=== PATIENT | male | born 1980 | race Two or more races ===

== ENCOUNTER 2019-02-01 22:14 | Emergency (ER) | END 2019-02-01 23:08 | disposition home or self-care (01) | LOC: FER 22:14 ==

== ENCOUNTER 2019-06-06 18:50 | Inpatient (IN) | payer OTHER ==
[2019-06-06 19:48] LABS: ALBUMIN 4.2 g/dl (3.4-5.0); BASO % 1.4 % (0-2.0); BILIRUBIN,TOTAL 1.2 mg/dl (0.2-1); CALCIUM 9.4 mg/dl (8.5-10); CREATININE 0.9 mg/dl (0.55-1.3); HEMATOCRIT 47.2 % (35.4-49); HEMOGLOBIN 15.9 GM/dl (11.7-16.9); LYMPH % 17.9 % (8-40); MCHC 33.7 g/dl (32.0-35.9); MEAN CELL VOLUME 85.9 fl (80-96); MONO % 8.7 % (3.8-10.2); PLATELET COUNT 252 K/MM3 (134-434); POTASSIUM 3.8 mmol/L (3.5-5.1); RBC 5.49 M/mm3 (4.00-5.60); RDW 11.9 % (11.9-15.9); WHITE BLOOD COUNT 14.3 K/mm3 (4.0-10.8)
[2019-06-06 20:27] LABS: AMORP URATES 4+ /hpf (NONE SEEN); EPITHELIAL CELLS FEW /hpf
[2019-06-06] MEDS ORDERED: PIPERACILLIN/TAZOBACTAM 4.5 GM VIAL IVPB ONE (21:23)
[2019-06-06] MEDS ORDERED: SODIUM CHLORIDE 0.9% 1000 ML INFUS.BAG IV ONE (21:26)
[2019-06-06] MEDS ORDERED: ONDANSETRON 4 MG/2 ML VIAL IVPUSH ONE (21:26)
[2019-06-06] MEDS ORDERED: ONDANSETRON 4 MG/2 ML VIAL ONE (21:26)
--- NOTE | 2019-06-06 22:05 | PDOC ---
Documentation entered by Smiley Stewart SCRIBE, acting as scribe for Luanne Zarco MD. Luanne Zarco MD: This documentation has been prepared by the Terry monroe Adrianna, SCRIBE, under my direction and personally reviewed by me in its entirety. I confirm that the documentation accurately reflects all work, treatment, procedures, and medical decision making performed by me. History of Present Illness - General Chief Complaint: Pain Stated Complaint: ABD PAIN - History of Present Illness Initial Comments: The patient is a 39 year old male, with a significant PMH of HTN ([place] from [place] who presents to the ED for evaluation of abdominal pain for 2 days. Patient notes he developed sudden onset abdominal pain yesterday, which was originally a 10/10 in nature but is now a 7/10. Patient notes the pain is intermittent, felt diffusely across the lower abdomen , radiates to his back, and is unaffected by eating. He states today he developed a subjective fever, but was within normal limits when measured. Patient denies any history of similar symptoms or abdominal surgeries. Denies nausea, vomit, diarrhea, constipation, dysuria. Allergies: NKA, NKDA Surgical History: None reported Social History: Denies EtOH, tobacco, or illicit drug use PCP: Dr. Burnett Past History - Past Medical History Allergies/Adverse Reactions: Allergies Allergy/AdvReac Type Severity Reaction Status Date / Time No Known Allergies Allergy Verified 06/06/19 18:52 Home Medications: Ambulatory Orders NK [No Known Home Medication] 06/06/19 COPD: No Other medical history: denies - Suicide/Smoking/Psychosocial Hx Smoking History: Never smoked Have you smoked in the past 12 months: No Information on smoking cessation initiated: No Hx Alcohol Use: No Drug/Substance Use Hx: No Review of Systems - Review of Systems Comments:: GENERAL/CONSTITUTIONAL: +Subjective fever (normal when measured). No chills. No weakness. HEAD, EYES, EARS, NOSE AND THROAT: No change in vision. No ear pain or discharge. No sore throat. CARDIOVASCULAR: No chest pain or shortness of breath. RESPIRATORY: No cough, wheezing, or hemoptysis. GASTROINTESTINAL: +Diffuse lower abdominal pain. No nausea, vomiting, diarrhea or constipation. GENITOURINARY: No dysuria, frequency, or change in urination. MUSCULOSKELETAL: +Low back pain (radiating from abdomen). No joint or muscle swelling or pain. No neck pain. SKIN: No rash NEUROLOGIC: No headache, vertigo, loss of consciousness, or change in strength/ sensation. ENDOCRINE: No increased thirst. No abnormal weight change. HEMATOLOGIC/LYMPHATIC: No anemia, easy bleeding, or history of blood clots. ALLERGIC/IMMUNOLOGIC: No hives or skin allergy. *Physical Exam - Vital Signs Last Vital Signs Temp Pulse Resp BP Pulse Ox 98.1 F 90 18 132/82 98 06/06/19 18:50 06/06/19 18:50 06/06/19 18:50 06/06/19 18:50 06/06/19 18:50 - Physical Exam Comments: GENERAL: Awake, alert, and fully oriented, in no acute distress LUNGS: Breath sounds equal, clear to auscultation bilaterally. No wheezes, and no crackles HEART: Regular rate and rhythm, normal S1 and S2, no murmurs, rubs or gallops ABDOMEN: +RUQ ttp. +RLQ ttp. +LLQ ttp. Soft, normoactive bowel sounds. No guarding, no rebound. No masses EXTREMITIES: Normal range of motion, no edema. No erythema or tenderness. DP/PT pulses 2+ and symmetric. Warm and well perfused. NEUROLOGICAL: Moves all extremities. Normal speech, normal gait ED Treatment Course - LABORATORY CBC & Chemistry Diagram: 06/06/19 19:24 06/06/19 19:24 - RADIOLOGY Radiograph Interpretation: EXAM#: TYPE/EXAM: RESULT: [id number] CT/ABDOMEN PELVIS CT WITH CONTR HISTORY PROVIDED: Rule out diverticulitis. IMPRESSION: Findings consistent with acute diverticulitis of the proximal sigmoid colon without abscess formation. Clinical correlation and follow-up recommended. Reported By: Kadeem Mcmullen MD 06/06/19 21:48 Medical Decision Making - Medical Decision Making 06/06/19 22:53 pt with diveritculitis. noted air in mesentary. vomiting once in ed. will admit for iv antiobiotics. given zosyn here. no fever. normal WBC count. *DC/Admit/Observation/Transfer Diagnosis at time of Disposition: Diverticulitis - Discharge Dispostion Condition at time of disposition: Stable Decision to Admit order: Yes - Referrals Referrals: Delilah Burnett MD [Primary Care Provider] - - Patient Instructions - Post Discharge Activity
[2019-06-06] MEDS ORDERED: PIPERACILLIN/TAZOB 3.375 GM 3.375 GM in DEXTROSE 5%-WATER - 50 ML IVPB ONE (22:13)
[2019-06-06] MEDS ORDERED: PIPERACILLIN/TAZOBACTAM 3.375 GM VIAL IVPB ONE (22:24)
[2019-06-06] MEDS ORDERED: LACTATED RINGERS SOLUTION 1,000 ML/1,000 ML INFUS.BAG IV SCH (23:45)
--- NOTE | 2019-06-07 00:48 | HP ---
CHIEF COMPLAINT: Abdominal pain PCP: Dr. Burnett HISTORY OF PRESENT ILLNESS: 39 year-old male with a PMH significant for HTN who presents to the ED for evaluation of abdominal pain for 2 days. Patient notes he developed sudden onset abdominal pain yesterday, which was originally a 10/10 in nature but is now a 7/10. Patient notes the pain is intermittent, felt diffusely across the lower abdomen, radiates to his back, and is unaffected by eating. He states today he developed a subjective fever, but was within normal limits when measured. Patient denies any history of similar symptoms or abdominal surgeries. Denies nausea, vomiting, diarrhea, constipation, dysuria. ER course was notable for: (1) WBC 14k, afebrile (2) CT: diverticulitis, air in mesentery (3) IV fluids; Zosyn x 1 (4) surgery Dr. Grayson consulted Recent Travel: No PAST MEDICAL HISTORY: Hypertension PAST SURGICAL HISTORY: None reported Social History: Smoking: no Alcohol: no Drugs: no Family History: Allergies No Known Allergies Allergy (Verified 06/06/19 18:52) HOME MEDICATIONS: Amlodipine Besylate 5 mg PO DAILY 06/07/19 Telmisartan [Micardis] 80 mg PO DAILY 06/07/19 REVIEW OF SYSTEMS CONSTITUTIONAL: Absent: fever, chills, diaphoresis, generalized weakness, malaise, loss of appetite, weight change HEENT: Absent: rhinorrhea, nasal congestion, throat pain, throat swelling, difficulty swallowing, mouth swelling, ear pain, eye pain, visual changes CARDIOVASCULAR: Absent: chest pain, syncope, palpitations, irregular heart rate, lightheadedness , peripheral edema RESPIRATORY: Absent: cough, shortness of breath, dyspnea with exertion, orthopnea, wheezing, stridor, hemoptysis GASTROINTESTINAL: +abdominal pain Absent: abdominal pain, abdominal distension, nausea, vomiting, diarrhea, constipation, melena, hematochezia GENITOURINARY: Absent: dysuria, frequency, urgency, hesitancy, hematuria, flank pain, genital pain MUSCULOSKELETAL: Absent: myalgia, arthralgia, joint swelling, back pain, neck pain SKIN: Absent: rash, itching, pallor HEMATOLOGIC/IMMUNOLOGIC: Absent: easy bleeding, easy bruising, lymphadenopathy, frequent infections ENDOCRINE: Absent: unexplained weight gain, unexplained weight loss, heat intolerance, cold intolerance NEUROLOGIC: Absent: headache, focal weakness or paresthesias, dizziness, unsteady gait, seizure, mental status changes, bladder or bowel incontinence PSYCHIATRIC: Absent: anxiety, depression, suicidal or homicidal ideation, hallucinations. PHYSICAL EXAMINATION Vital Signs - 24 hr 06/06/19 18:50 Temperature 98.1 F Pulse Rate 90 Respiratory 18 Rate Blood Pressure 132/82 O2 Sat by Pulse 98 Oximetry (%) GENERAL: Awake, alert, and fully oriented, in no acute distress. HEAD: Normal with no signs of trauma. EYES: Pupils equal, round and reactive to light, extraocular movements intact, sclera anicteric, conjunctiva clear. No lid lag. LUNGS: Breath sounds equal, clear to auscultation bilaterally. No wheezes, and no crackles. No accessory muscle use. HEART: Regular rate and rhythm, normal S1 and S2 without murmur, rub or gallop. ABDOMEN: Mild LLQ tenderness, normoactive bowel sounds, no guarding, no rebound tenderness MUSCULOSKELETAL: Normal range of motion at all joints. No bony deformities or tenderness. No CVA tenderness. UPPER EXTREMITIES: 2+ pulses, warm, well-perfused. No cyanosis. No clubbing. No peripheral edema. LOWER EXTREMITIES: 2+ pulses, warm, well-perfused. No calf tenderness. No peripheral edema. NEUROLOGICAL: Cranial nerves II-XII intact. Normal speech. Laboratory Results - last 24 hr 06/06/19 06/06/19 06/06/19 19:20 19:24 19:24 WBC 14.3 H RBC 5.49 Hgb 15.9 Hct 47.2 MCV 85.9 MCH 29.0 MCHC 33.7 RDW 11.9 Plt Count 252 MPV 11.0 Absolute Neuts (auto) 9.9 Neutrophils % 69.0 Lymphocytes % 17.9 Monocytes % 8.7 Eosinophils % 3.0 Basophils % 1.4 Sodium 141 Potassium 3.8 Chloride 107 Carbon Dioxide 25 Anion Gap 9 BUN 12.0 Creatinine 0.9 Est GFR (CKD-EPI)AfAm 122.52 Est GFR (CKD-EPI)NonAf 105.71 Random Glucose 126 H Calcium 9.4 Total Bilirubin 1.2 H AST 22 ALT 30 Alkaline Phosphatase 72 Total Protein 8.0 Albumin 4.2 Lipase Urine Color Yellow Urine Appearance Slightly Urine pH 5.5 Urine Protein 2+ H Urine Glucose (UA) Negative Urine Ketones Negative Urine Blood 1+ H Urine Nitrite Negative Urine Bilirubin 1+ H Urine Urobilinogen 0.2 Ur Leukocyte Esterase Negative Urine RBC 2-5 Urine WBC 0-2 Ur Transition Epith Cell Few Amorphous Urates 4+ Urine Bacteria Few 06/06/19 19:24 WBC RBC Hgb Hct MCV MCH MCHC RDW Plt Count MPV Absolute Neuts (auto) Neutrophils % Lymphocytes % Monocytes % Eosinophils % Basophils % Sodium Potassium Chloride Carbon Dioxide Anion Gap BUN Creatinine Est GFR (CKD-EPI)AfAm Est GFR (CKD-EPI)NonAf Random Glucose Calcium Total Bilirubin AST ALT Alkaline Phosphatase Total Protein Albumin Lipase 103 Urine Color Urine Appearance Urine pH Urine Protein Urine Glucose (UA) Urine Ketones Urine Blood Urine Nitrite Urine Bilirubin Urine Urobilinogen Ur Leukocyte Esterase Urine RBC Urine WBC Ur Transition Epith Cell Amorphous Urates Urine Bacteria ASSESSMENT/PLAN 39 year-old male with a PMH significant for HTN, admitted for diverticulitis. Acute Diverticulitis --06/06 CTAP: acute diverticulitis of the proximal sigmoid colon, no abscess formation, (+) free air in mesentery --elevated WBC, no fever --start Zosyn --ID consult --surgery consult Dr. Grayson Hypertension --BP stable --continue amlodipine, ACEI FEN Fluids: LR@125mL/hr Electrolytes: replete as indicated Nutrition: NPO DVT prophylaxis: SCDs, oob, ambulation Dispo: continues to require inpatient care. Full code. Visit type - Emergency Visit Emergency Visit: Yes ED Registration Date: 06/06/19 Care time: The patient presented to the Emergency Department on the above date and was hospitalized for further evaluation of their emergent condition. - New Patient This patient is new to me today: Yes Date on this admission: 06/09/19 - Critical Care Critical Care patient: No
[2019-06-07] MEDS ORDERED: ACETAMINOPHEN 1000 MG/100 ML VIAL (NON FORMULARY) IVPB PRN (01:20)
[2019-06-07 01:52] LABS: INR 1.05 (0.83-1.09); PROTHROMBIN TIME (PATIENT) 12.4 SEC (9.7-13.0)
[2019-06-07 02:47] VITALS: BMI 36.3
[2019-06-07 07:26] LABS: BASO % 0.6 % (0-2.0); EOS % 4.9 % (0-4.5); HEMATOCRIT 40.7 % (35.4-49); HEMOGLOBIN 13.8 GM/dl (11.7-16.9); LYMPH % 24.6 % (8-40); MCH 28.8 pg (25.7-33.7); MCHC 33.9 g/dl (32.0-35.9); MEAN CELL VOLUME 84.8 fl (80-96); MEAN PLT VOLUME 10.3 fl (7.5-11.1); MONO % 9.1 % (3.8-10.2); NEUT % 60.8 % (42.8-82.8); PLATELET COUNT 215 K/MM3 (134-434); RDW 12.1 % (11.9-15.9); WHITE BLOOD COUNT 9.3 K/mm3 (4.0-10.8)
[2019-06-07 07:40] LABS: CALCIUM 8.8 mg/dl (8.5-10); MAGNESIUM 2.1 mg/dL (1.8-2.4)
[2019-06-07] MEDS: amLODIPine BESYLATE 5 MG TABLET (FP) PO SCH (10:10)
[2019-06-07] MEDS: VALSARTAN 160 MG TABLET (UD) PO SCH (10:10)
--- NOTE | 2019-06-07 10:17 | CONSULT ---
Consult Consult Specialty:: General Surgery Referred by:: Wilfred Zarco Reason for Consultation:: diverticulitis - History of Present Illness Chief Complaint: lower abdominal pain History of Present Illness: 39yo [place] M with HTN began having RLQ pain Wednesday, which radiated across lower abdomen, and has since moved more to LLQ, associated with subjective fever and chills early Wednesday am into yesterday, though he did not have N/V. He denied diarrhea or constipation, as well as urinary complaints. Never had this before. He was able to eat despite the pain. He came to ER yesterday, because the pain was not getting any better. In ER, he was noted to have wbc 14, and CT showed sigmoid diverticulitis with localized microperf/locule of air in mesentery, no abscess or free fluid or gross free air. He has never had a colonoscopy, because he is only 39. He was given IVF, Zosyn and pain med in the ER, and surgery was asked to assess. He is seen and examined in bed, admitted to medicine. He reports feeling somewhat better. No pain currently but still with tenderness LLQ. He has not moved his bowels yet but is voiding ok. His antihypertensive from [place] is combination amlodipine 5mg and telmisartan 80mg, which he takes every OTHER day. He does monitor his BP at home, which ranges from normal up to 130s-140s systolic in general. - History Source History Provided By: Patient Limitations to Obtaining History: No Limitations - Past Medical History Cardio/Vascular: Yes: HTN - Past Surgical History Past Surgical History: Yes: None - Alcohol/Substance Use Hx Alcohol Use: No History of Substance Use: reports: None - Smoking History Smoking history: Never smoked Have you smoked in the past 12 months: No - Social History ADL: Independent Place of : Other ([place]) Home Medications - Allergies Allergies/Adverse Reactions: Allergies Allergy/AdvReac Type Severity Reaction Status Date / Time No Known Allergies Allergy Verified 06/06/19 18:52 - Home Medications Home Medications: Ambulatory Orders Amlodipine Besylate 5 mg PO DAILY 06/07/19 Telmisartan [Micardis] 80 mg PO DAILY 06/07/19 Home Medications (free text): pt takes combo med every OTHER day, not daily Family Disease History - Family Disease History Family Disease History: Other: Father (HTN, at 40), Mother (alive, h/o CVA) Review of Systems - Review of Systems Constitutional: reports: Chills, Fever Eyes: denies: Blurred Vision, Recent Change in Vision HENT: denies: Difficult Swallowing, Throat Pain Neck: denies: Swollen Glands, Tenderness Cardiovascular: denies: Chest Pain, Palpitations Respiratory: denies: Cough, SOB Gastrointestinal: reports: Abdominal Pain. denies: Constipation, Diarrhea, Nausea, Vomiting Genitourinary: denies: Burning, Dysuria Musculoskeletal: reports: Back Pain (few months ago, not chronic). denies: Joint Pain, Muscle Pain Integumentary: denies: Change in Color, Rash Neurological: denies: Dizziness, Headache Psychiatric: denies: Anxiety, Depression Physical Exam Vital Signs: Vital Signs Temperature 98.2 F 06/07/19 09:46 Pulse Rate 80 06/07/19 09:46 Respiratory Rate 17 06/07/19 09:46 Blood Pressure 130/73 06/07/19 09:46 O2 Sat by Pulse Oximetry (%) 99 06/07/19 09:46 Constitutional: Yes: No Distress, Calm, Obese Eyes: Yes: Conjunctiva Clear, EOM Intact HENT: Yes: Atraumatic, Normocephalic Neck: Yes: Supple, Trachea Midline Cardiovascular: Yes: Regular Rate and Rhythm Respiratory: Yes: Regular, CTA Bilaterally Gastrointestinal: Yes: Soft, Abdomen, Obese, Hyperactive Bowel Sounds, Tenderness (LLQ, no adam/guard). No: Tenderness, Epigastrium ...Rectal Exam: Yes: Deferred Renal/: No: CVA Tenderness - Left, CVA Tenderness - Right Musculoskeletal: No: Joint Stiffness, Joint Swelling Extremities: No: Cool, Cyanosis Edema: No Peripheral Pulses WNL: Yes Integumentary: No: Jaundice, Rash Neurological: Yes: Alert, Oriented Psychiatric: Yes: Alert, Oriented Labs: CBC, BMP 06/07/19 07:06 06/07/19 07:06 CMP Sodium 140 mmol/L (136-145) 06/07/19 07:06 Potassium 4.0 mmol/L (3.5-5.1) 06/07/19 07:06 Chloride 108 mmol/L (98-107) H 06/07/19 07:06 Carbon Dioxide 26 mmol/L (21-32) 06/07/19 07:06 Anion Gap 6 MMOL/L (8-16) L 06/07/19 07:06 BUN 14.0 mg/dl (7-18) 06/07/19 07:06 Creatinine 1.0 mg/dl (0.55-1.3) 06/07/19 07:06 Est GFR (CKD-EPI)AfAm 107.87 06/07/19 07:06 Est GFR (CKD-EPI)NonAf 93.07 06/07/19 07:06 Random Glucose 98 mg/dl (74-106) 06/07/19 07:06 Calcium 8.8 mg/dl (8.5-10) 06/07/19 07:06 Magnesium 2.1 mg/dL (1.8-2.4) 06/07/19 07:06 Total Bilirubin 1.2 mg/dl (0.2-1) H 06/06/19 19:24 AST 22 U/L (15-37) 06/06/19 19:24 ALT 30 U/L (13-61) 06/06/19 19:24 Alkaline Phosphatase 72 U/L (45-117) 06/06/19 19:24 Total Protein 8.0 g/dl (6.4-8.2) 06/06/19 19:24 Albumin 4.2 g/dl (3.4-5.0) 06/06/19 19:24 Lipase 103 U/L (73-393) 06/06/19 19:24 INR, PTT INR 1.05 (0.83-1.09) 06/07/19 01:03 Urine Test Results Urine Color Yellow 06/06/19 19:20 Urine Appearance Slightly 06/06/19 19:20 Urine pH 5.5 (4.5-8) 06/06/19 19:20 Urine Protein 2+ (NEGATIVE) H 06/06/19 19:20 Urine Glucose (UA) Negative (NEGATIVE) 06/06/19 19:20 Urine Ketones Negative (NEGATIVE) 06/06/19 19:20 Urine Blood 1+ (NEGATIVE) H 06/06/19 19:20 Urine Nitrite Negative (NEGATIVE) 06/06/19 19:20 Urine Bilirubin 1+ (NEGATIVE) H 06/06/19 19:20 Ur Leukocyte Esterase Negative (NEGATIVE) 06/06/19 19:20 Urine RBC 2-5 /hpf (0-4) 06/06/19 19:20 Urine WBC 0-2 (NEGATIVE) 06/06/19 19:20 Urine Bacteria Few /hpf (NEGATIVE) 06/06/19 19:20 wbc down from 14 Imaging - Results Cat Scan: Report Reviewed, Image Reviewed (sigmoid colon with area of inflammation, haziness adjacent to colon, locule of air in mesenteric fat; no organized abscess, no obstruction, no free fluid or gross free air) Problem List - Problems (1) Diverticulitis of large intestine with perforation without abscess or bleeding Assessment/Plan: localized microperf but no abscess agree with Zosyn, ID consult to continue NPO/IVF - except meds with sips ok would wait to resume po/start clears until tenderness as well as pain resolves more trend labs - wbc normal today no fevers GI/DVT prophylaxis pain meds prn - tylenol first line encouraged OOB/ambulation discussed with patient that this episode may resolve well with conservative treatment but if he experienced gross perforation, failure to improve or clinical deterioration, emergent/urgent surgery could be necessary this would likely include need for colostomy, though it could be reversed in future he understands expect he will ultimately complete antibiotic course PO at home, presuming improvement leads to discharge without surgery he will need GI referral on discharge for colonoscopy to be performed 6-8 weeks after resolution of this episode PMD is Dr. Delilah Burnett discussed with Sharlene Mills NP Code(s): K57.20 - DVTRCLI OF LG INT W PERFORATION AND ABSCESS W/O BLEEDING (2) LLQ pain Code(s): R10.32 - LEFT LOWER QUADRANT PAIN (3) Chills without fever Code(s): R68.83 - CHILLS (WITHOUT FEVER) (4) Class 2 obesity due to excess calories with body mass index (BMI) of 36.0 to 36.9 in adult Code(s): E66.09 - OTHER OBESITY DUE TO EXCESS CALORIES; Z68.36 - BODY MASS INDEX (BMI) 36.0-36.9, ADULT Qualifiers: Serious obesity comorbidity presence: without serious comorbidity Qualified Code(s): E66.09 - Other obesity due to excess calories; Z68.36 - Body mass index (BMI) 36.0-36.9, adult
[2019-06-07] MEDS ORDERED: PIPERACILLIN/TAZOB 4.5 GM 4.5 GM in DEXTROSE 5%-WATER 100 ML IVPB SCH (10:45)
[2019-06-07] MEDS ORDERED: PIPERACILLIN/TAZOBACTAM 4.5 GM VIAL IVPB ONE ×2 (10:48→16:56)
[2019-06-07] MEDS ORDERED: DEXTROSE 5%-WATER 100 ML IVPB ONE ×2 (10:48→16:56)
--- NOTE | 2019-06-07 11:14 | EKG ---
Test Reason : Blood Pressure : / mmHG Vent. Rate : 070 BPM Atrial Rate : 070 BPM P-R Int : 172 ms QRS Dur : 092 ms QT Int : 388 ms P-R-T Axes : 012 067 018 degrees QTc Int : 419 ms NORMAL SINUS RHYTHM NORMAL ECG NO PREVIOUS ECGS AVAILABLE Confirmed by JERROD DE LEON, CRISTI ([id number]) on 06/07/2019 11:13:57 AM Referred By: RODERICK VELA Confirmed By:CRISTI ELDER MD
--- NOTE | 2019-06-07 13:24 | CON.ID ---
Consult Consult Specialty:: infectious diseases Referred by:: Peg Reason for Consultation:: diverticulitis with micro perf - History of Present Illness Chief Complaint: abd pain History of Present Illness: 39 year-old male with a PMH significant for HTN who presents to the ED for evaluation of abdominal pain for 2 days. Patient notes he developed sudden onset abdominal pain yesterday, which was originally a 10/10 in nature but is now a 7/10. Patient notes the pain is intermittent, felt diffusely across the lower abdomen, radiates to his back, and is unaffected by eating. He states today he developed a subjective fever, but was within normal limits when measured. Patient denies any history of similar symptoms or abdominal surgeries. Denies nausea, vomiting, diarrhea, constipation, dysuria. currently he feels a little better patient started on zosyn - History Source History Provided By: Patient Limitations to Obtaining History: No Limitations - Past Medical History Cardio/Vascular: Yes: HTN - Past Surgical History Past Surgical History: Yes: None - Alcohol/Substance Use Hx Alcohol Use: No History of Substance Use: reports: None - Smoking History Smoking history: Never smoked Have you smoked in the past 12 months: No - Social History ADL: Independent Home Medications - Allergies Allergies/Adverse Reactions: Allergies Allergy/AdvReac Type Severity Reaction Status Date / Time No Known Allergies Allergy Verified 06/06/19 18:52 - Home Medications Home Medications: Ambulatory Orders Amlodipine Besylate 5 mg PO DAILY 06/07/19 Telmisartan [Micardis] 80 mg PO DAILY 06/07/19 Family Disease History - Family Disease History Family Disease History: Other: Father (HTN, at 40), Mother (alive, h/o CVA) Review of Systems - Review of Systems Constitutional: reports: No Symptoms Eyes: reports: No Symptoms HENT: reports: No Symptoms Neck: reports: No Symptoms Cardiovascular: reports: No Symptoms Respiratory: reports: No Symptoms Gastrointestinal: reports: Abdominal Pain Genitourinary: reports: No Symptoms Musculoskeletal: reports: No Symptoms Integumentary: reports: No Symptoms Neurological: reports: No Symptoms Endocrine: reports: No Symptoms Hematology/Lymphatic: reports: No Symptoms Psychiatric: reports: No Symptoms Physical Exam Vital Signs: Vital Signs Temperature 98.2 F 06/07/19 09:46 Pulse Rate 80 06/07/19 09:46 Respiratory Rate 17 09/18/19 09:46 Blood Pressure 130/73 09/18/19 09:46 O2 Sat by Pulse Oximetry (%) 99 06/07/19 09:46 Constitutional: Yes: Well Nourished, Calm, Mild Distress Eyes: Yes: Conjunctiva Clear Neck: Yes: Supple, Trachea Midline Cardiovascular: Yes: Regular Rate and Rhythm Respiratory: Yes: Regular, CTA Bilaterally Gastrointestinal: Yes: Soft, Hypoactive Bowel Sounds, Tenderness (left lower quadrant) Musculoskeletal: Yes: WNL Extremities: Yes: WNL Neurological: Yes: Alert, Oriented Psychiatric: Yes: Alert, Oriented Labs: CBC, BMP 06/07/19 07:06 06/07/19 07:06 Imaging - Results Cat Scan: Report Reviewed, Image Reviewed Assessment/Plan Problem List - Problems (1) Diverticulitis of large intestine with perforation without abscess or bleeding Code(s): K57.20 - DVTRCLI OF LG INT W PERFORATION AND ABSCESS W/O BLEEDING (2) LLQ pain Code(s): R10.32 - LEFT LOWER QUADRANT PAIN (3) Chills without fever Code(s): R68.83 - CHILLS (WITHOUT FEVER) (4) Class 2 obesity due to excess calories with body mass index (BMI) of 36.0 to 36.9 in adult Code(s): E66.09 - OTHER OBESITY DUE TO EXCESS CALORIES; Z68.36 - BODY MASS INDEX (BMI) 36.0-36.9, ADULT Qualifiers: Serious obesity comorbidity presence: without serious comorbidity Qualified Code(s): E66.09 - Other obesity due to excess calories; Z68.36 - Body mass index (BMI) 36.0-36.9, adult plan we will conitnue zosyn surgery non board close watch npo rest as per surgery
--- NOTE | 2019-06-07 14:50 | PN ---
Physical Exam: SUBJECTIVE: Patient seen and examined at bedside. Feels much better. Denies pain. Has tolerated two meals of clear liquids. OBJECTIVE: Vital Signs Period Temp Pulse Resp BP Sys/Mederos Pulse Ox Last 24 Hr 97.8 F-98.4 F 70-90 -19 114-142/66-92 98-99 GENERAL: The patient is awake, alert, and fully oriented, in no acute distress. LUNGS: Breath sounds equal, clear to auscultation bilaterally, no wheezes, no crackles, no accessory muscle use. HEART: Regular rate and rhythm, S1, S2 without murmur, rub or gallop. ABDOMEN: Soft, nontender, nondistended EXTREMITIES: 2+ pulses, warm, well-perfused, no edema. NEUROLOGICAL: Cranial nerves II through XII grossly intact. Normal speech, gait not observed. Laboratory Results - last 24 hr 06/06/19 06/06/19 06/06/19 19:20 19:24 19:24 WBC 14.3 H RBC 5.49 Hgb 15.9 Hct 47.2 MCV 85.9 MCH 29.0 MCHC 33.7 RDW 11.9 Plt Count 252 MPV 11.0 Absolute Neuts (auto) 9.9 Neutrophils % 69.0 Lymphocytes % 17.9 Monocytes % 8.7 Eosinophils % 3.0 Basophils % 1.4 PT with INR INR PTT (Actin FS) Sodium 141 Potassium 3.8 Chloride 107 Carbon Dioxide 25 Anion Gap 9 BUN 12.0 Creatinine 0.9 Est GFR (CKD-EPI)AfAm 122.52 Est GFR (CKD-EPI)NonAf 105.71 Random Glucose 126 H Calcium 9.4 Magnesium Total Bilirubin 1.2 H AST 22 ALT 30 Alkaline Phosphatase 72 Total Protein 8.0 Albumin 4.2 Lipase Urine Color Yellow Urine Appearance Slightly Urine pH 5.5 Urine Protein 2+ H Urine Glucose (UA) Negative Urine Ketones Negative Urine Blood 1+ H Urine Nitrite Negative Urine Bilirubin 1+ H Urine Urobilinogen 0.2 Ur Leukocyte Esterase Negative Urine RBC 2-5 Urine WBC 0-2 Ur Transition Epith Cell Few Amorphous Urates 4+ Urine Bacteria Few Blood Type Antibody Screen 06/06/19 06/07/19 06/07/19 19:24 01:03 01:03 WBC RBC Hgb Hct MCV MCH MCHC RDW Plt Count MPV Absolute Neuts (auto) Neutrophils % Lymphocytes % Monocytes % Eosinophils % Basophils % PT with INR 12.40 INR 1.05 PTT (Actin FS) 36.0 Sodium Potassium Chloride Carbon Dioxide Anion Gap BUN Creatinine Est GFR (CKD-EPI)AfAm Est GFR (CKD-EPI)NonAf Random Glucose Calcium Magnesium Total Bilirubin AST ALT Alkaline Phosphatase Total Protein Albumin Lipase 103 Urine Color Urine Appearance Urine pH Urine Protein Urine Glucose (UA) Urine Ketones Urine Blood Urine Nitrite Urine Bilirubin Urine Urobilinogen Ur Leukocyte Esterase Urine RBC Urine WBC Ur Transition Epith Cell Amorphous Urates Urine Bacteria Blood Type Antibody Screen 06/07/19 06/07/19 06/07/19 01:03 01:05 07:06 WBC 9.3 RBC 4.80 Hgb 13.8 Hct 40.7 MCV 84.8 MCH 28.8 MCHC 33.9 RDW 12.1 Plt Count 215 MPV 10.3 Absolute Neuts (auto) 5.6 Neutrophils % 60.8 Lymphocytes % 24.6 D Monocytes % 9.1 Eosinophils % 4.9 H Basophils % 0.6 PT with INR INR PTT (Actin FS) Sodium Potassium Chloride Carbon Dioxide Anion Gap BUN Creatinine Est GFR (CKD-EPI)AfAm Est GFR (CKD-EPI)NonAf Random Glucose Calcium Magnesium Total Bilirubin AST ALT Alkaline Phosphatase Total Protein Albumin Lipase Urine Color Urine Appearance Urine pH Urine Protein Urine Glucose (UA) Urine Ketones Urine Blood Urine Nitrite Urine Bilirubin Urine Urobilinogen Ur Leukocyte Esterase Urine RBC Urine WBC Ur Transition Epith Cell Amorphous Urates Urine Bacteria Blood Type B NEGATIVE B NEGATIVE Antibody Screen Negative 06/07/19 07:06 WBC RBC Hgb Hct MCV MCH MCHC RDW Plt Count MPV Absolute Neuts (auto) Neutrophils % Lymphocytes % Monocytes % Eosinophils % Basophils % PT with INR INR PTT (Actin FS) Sodium 140 Potassium 4.0 Chloride 108 H Carbon Dioxide 26 Anion Gap 6 L BUN 14.0 Creatinine 1.0 Est GFR (CKD-EPI)AfAm 107.87 Est GFR (CKD-EPI)NonAf 93.07 Random Glucose 98 Calcium 8.8 Magnesium 2.1 Total Bilirubin AST ALT Alkaline Phosphatase Total Protein Albumin Lipase Urine Color Urine Appearance Urine pH Urine Protein Urine Glucose (UA) Urine Ketones Urine Blood Urine Nitrite Urine Bilirubin Urine Urobilinogen Ur Leukocyte Esterase Urine RBC Urine WBC Ur Transition Epith Cell Amorphous Urates Urine Bacteria Blood Type Antibody Screen Active Medications Generic Name Dose Route Start Last Admin Trade Name Freq PRN Reason Stop Dose Admin Acetaminophen 1,000 mg 06/07/19 01:20 Ofirmev Injection - IVPB Q6H PRN PAIN LEVEL 1-5 Amlodipine Besylate 5 mg 06/07/19 10:00 06/07/19 10:10 Norvasc - PO 5 mg DAILY [facility] Administration Lactated Ringer's 1,000 ml in 1,000 mls @ 125 mls/hr 06/06/19 23:45 06/07/19 00:52 Lactated Ringers Solution IV 125 mls/hr ASDIR [facility] Administration Piperacillin Sod/Tazobactam 100 mls @ 200 mls/hr 06/07/19 18:00 Sod 4.5 gm/ Dextrose IVPB Q8H-IV [facility] Protocol Valsartan 320 mg 06/07/19 10:00 06/07/19 10:10 Diovan - PO 320 mg DAILY [facility] Administration ASSESSMENT/PLAN: 39 year-old male with a PMH significant for HTN, admitted for diverticulitis. Acute Diverticulitis --06/06 CTAP: acute diverticulitis of the proximal sigmoid colon, no abscess formation, (+) free air in mesentery --leukocytosis resolved; no fever --continue Zosyn --ID consult --surgery consult Dr. Grayson Hypertension --BP stable --continue amlodipine, ACEI FEN Fluids: LR@125mL/hr Electrolytes: replete as indicated Nutrition: advance diet DVT prophylaxis: SCDs, oob, ambulation Dispo: continues to require inpatient care. Full code. Visit type - Emergency Visit Emergency Visit: Yes ED Registration Date: 06/06/19 Care time: The patient presented to the Emergency Department on the above date and was hospitalized for further evaluation of their emergent condition. - New Patient This patient is new to me today: No - Critical Care Critical Care patient: No
[2019-06-07] MEDS: PIPERACILLIN/TAZOB 4.5 GM 4.5 GM in DEXTROSE 5%-WATER 100 ML IVPB SCH (17:20)
[2019-06-08] MEDS ORDERED: PIPERACILLIN/TAZOBACTAM 4.5 GM VIAL IVPB ONE ×3 (01:13→16:48)
[2019-06-08] MEDS ORDERED: DEXTROSE 5%-WATER 100 ML IVPB ONE ×3 (01:13→16:48)
[2019-06-08] MEDS: PIPERACILLIN/TAZOB 4.5 GM 4.5 GM in DEXTROSE 5%-WATER 100 ML IVPB SCH ×3 (01:25→17:21)
[2019-06-08 08:18] LABS: BASO % 0.7 % (0-2.0); EOS % 6.2 % (0-4.5); HEMATOCRIT 43.3 % (35.4-49); HEMOGLOBIN 14.5 GM/dl (11.7-16.9); LYMPH % 20.1 % (8-40); MCH 28.4 pg (25.7-33.7); MCHC 33.5 g/dl (32.0-35.9); MEAN CELL VOLUME 84.7 fl (80-96); MEAN PLT VOLUME 10.7 fl (7.5-11.1); MONO % 10.3 % (3.8-10.2); NEUT % 62.7 % (42.8-82.8); PLATELET COUNT 220 K/MM3 (134-434); RBC 5.11 M/mm3 (4.00-5.60); RDW 11.9 % (11.9-15.9); WHITE BLOOD COUNT 7.6 K/mm3 (4.0-10.8)
[2019-06-08 08:23] LABS: ALBUMIN 3.6 g/dl (3.4-5.0); BILIRUBIN,TOTAL 1.6 mg/dl (0.2-1); CALCIUM 9.4 mg/dl (8.5-10); CREATININE 1.2 mg/dl (0.55-1.3); MAGNESIUM 2.2 mg/dL (1.8-2.4); POTASSIUM 4.5 mmol/L (3.5-5.1); TOT PROT 6.8 g/dl (6.4-8.2)
[2019-06-08] MEDS: VALSARTAN 160 MG TABLET (UD) PO SCH (09:23)
[2019-06-08] MEDS: amLODIPine BESYLATE 5 MG TABLET (FP) PO SCH (09:25)
--- NOTE | 2019-06-08 14:42 | PN ---
Progress Note, Physician Chief Complaint: LLQ pain History of Present Illness: 39yo [place] M with uncomplicated sigmoid diverticulitis. He reports no pain and has not been using any tylenol. Ambulating, sitting OOB at times. Moved his bowels (soft, formed) this morning. Overall feeling better. Seen and examined in bed, cousin at bedside. No fevers, wbc normal, bili up slightly. Tolerated clears for dinner and breakfast; has full liquids now for lunch. On Zosyn per ID. - Current Medication List Current Medications: Active Medications Acetaminophen (Ofirmev Injection -) 1,000 mg IVPB Q6H PRN PRN Reason: PAIN LEVEL 1-5 Amlodipine Besylate (Norvasc -) 5 mg PO DAILY [facility] Last Admin: 06/08/19 09:25 Dose: 5 mg Piperacillin Sod/Tazobactam (Sod 4.5 gm/ Dextrose) 100 mls @ 200 mls/hr IVPB Q8H-IV [facility]; Protocol Last Admin: 06/08/19 09:26 Dose: 200 mls/hr Valsartan (Diovan -) 320 mg PO DAILY [facility] Last Admin: 06/08/19 09:23 Dose: 320 mg - Objective Vital Signs: Vital Signs Temperature 98.2 F 06/08/19 14:00 Pulse Rate 77 06/08/19 14:00 Respiratory Rate 18 06/08/19 14:00 Blood Pressure 113/81 06/08/19 14:00 O2 Sat by Pulse Oximetry (%) 100 06/08/19 14:00 Constitutional: Yes: No Distress, Calm, Obese Eyes: Yes: Conjunctiva Clear, EOM Intact. No: Sclera Icterus HENT: Yes: Atraumatic, Normocephalic Gastrointestinal: Yes: Soft, Abdomen, Obese, Tenderness (minimal LLQ to deep palpation, less than yesterday). No: Distention Musculoskeletal: No: Joint Stiffness, Joint Swelling Extremities: No: Cool, Cyanosis Integumentary: No: Jaundice, Rash Neurological: Yes: Alert, Oriented Labs: CBC, BMP 06/08/19 07:10 06/08/19 07:10 CMP Sodium 142 mmol/L (136-145) 06/08/19 07:10 Potassium 4.5 mmol/L (3.5-5.1) 06/08/19 07:10 Chloride 104 mmol/L (98-107) 06/08/19 07:10 Carbon Dioxide 31 mmol/L (21-32) 06/08/19 07:10 Anion Gap 7 MMOL/L (8-16) L 06/08/19 07:10 BUN 14.0 mg/dl (7-18) 06/08/19 07:10 Creatinine 1.2 mg/dl (0.55-1.3) 06/08/19 07:10 Est GFR (CKD-EPI)AfAm 86.53 06/08/19 07:10 Est GFR (CKD-EPI)NonAf 74.66 06/08/19 07:10 Random Glucose 86 mg/dl (74-106) 06/08/19 07:10 Calcium 9.4 mg/dl (8.5-10) 06/08/19 07:10 Magnesium 2.2 mg/dL (1.8-2.4) 06/08/19 07:10 Total Bilirubin 1.6 mg/dl (0.2-1) H 06/08/19 07:10 AST 22 U/L (15-37) 06/08/19 07:10 ALT 32 U/L (13-61) 06/08/19 07:10 Alkaline Phosphatase 50 U/L (45-117) D 06/08/19 07:10 Total Protein 6.8 g/dl (6.4-8.2) 06/08/19 07:10 Albumin 3.6 g/dl (3.4-5.0) 06/08/19 07:10 Lipase 103 U/L (73-393) 06/06/19 19:24 Hb and Cr up just a little Problem List - Problems (1) Diverticulitis of large intestine with perforation without abscess or bleeding Assessment/Plan: uncomplicated diverticulitis continue Zosyn - will be 2 days of IV abx tonight/early am full liquids ok for now if tolerates fulls for lunch AND dinner, ok to advance to regular in AM for breakfast would continue IV fluids through today and/or encourage noncaffeinated PO liquid intake trend labs GI/DVT prophylaxis pain meds prn - tylenol first line (not using) encouraged OOB/ambulation presuming he tolerates regular diet for breakfast and lunch tomorrow, could probably go home in afternoon on ORAL antibiotic course to finish, per ID (anticipate likely 10d of ?Augmentin 875mg bid? or similar) he will need GI referral on discharge for colonoscopy to be performed 6-8 weeks after RESOLUTION of this episode PMD is Dr. Delilah Burnett discussed with nursing will discuss with Sharlene Mills NP Code(s): K57.20 - DVTRCLI OF LG INT W PERFORATION AND ABSCESS W/O BLEEDING (2) LLQ pain Assessment/Plan: resolved Code(s): R10.32 - LEFT LOWER QUADRANT PAIN (3) Chills without fever Assessment/Plan: resolved Code(s): R68.83 - CHILLS (WITHOUT FEVER) (4) Class 2 obesity due to excess calories with body mass index (BMI) of 36.0 to 36.9 in adult Code(s): E66.09 - OTHER OBESITY DUE TO EXCESS CALORIES; Z68.36 - BODY MASS INDEX (BMI) 36.0-36.9, ADULT Qualifiers: Serious obesity comorbidity presence: without serious comorbidity Qualified Code(s): E66.09 - Other obesity due to excess calories; Z68.36 - Body mass index (BMI) 36.0-36.9, adult
[2019-06-08] MEDS ORDERED: ACETAMINOPHEN 325 MG TABLET (FP) PO PRN (14:51)
[2019-06-08] MEDS ORDERED: SODIUM CHLORIDE 0.45% 1,000 ML IV SCH (15:00)
[2019-06-08] MEDS: LACTOBACILLUS ACIDOPHILUS 1 TABLET PO SCH (15:20)
[2019-06-09] MEDS ORDERED: DEXTROSE 5%-WATER 100 ML IVPB ONE ×2 (00:26→09:31)
[2019-06-09] MEDS ORDERED: PIPERACILLIN/TAZOBACTAM 4.5 GM VIAL IVPB ONE ×2 (00:26→09:31)
[2019-06-09] MEDS: PIPERACILLIN/TAZOB 4.5 GM 4.5 GM in DEXTROSE 5%-WATER 100 ML IVPB SCH ×2 (01:51→10:00)
[2019-06-09] MEDS: LACTOBACILLUS ACIDOPHILUS 1 TABLET PO SCH (09:59)
[2019-06-09] MEDS: amLODIPine BESYLATE 5 MG TABLET (FP) PO SCH (10:00)
[2019-06-09] MEDS: VALSARTAN 160 MG TABLET (UD) PO SCH (10:00)
--- NOTE | 2019-06-09 14:23 | DS ---
Physical Exam: SUBJECTIVE: Patient seen and examined OBJECTIVE: Vital Signs Period Temp Pulse Resp BP Sys/Mederos Pulse Ox Last 24 Hr 97.5 F-98.3 F 73-79 16-18 110-119/69-73 96-98 PHYSICAL EXAM GENERAL: The patient is awake, alert, and fully oriented, in no acute distress. HEAD: Normal with no signs of trauma. EYES: PERRL, extraocular movements intact, sclera anicteric, conjunctiva clear. ENT: Ears normal, nares patent, oropharynx clear without exudates, moist mucous membranes. NECK: Trachea midline, full range of motion, supple. LUNGS: Breath sounds equal, clear to auscultation bilaterally, no wheezes, no crackles, no accessory muscle use. HEART: Regular rate and rhythm, S1, S2 without murmur, rub or gallop. ABDOMEN: Soft, nontender, nondistended, normoactive bowel sounds, no guarding, no rebound, no hepatosplenomegaly, no masses. EXTREMITIES: 2+ pulses, warm, well-perfused, no edema. NEUROLOGICAL: Cranial nerves II through XII grossly intact. Normal speech, gait not observed. PSYCH: Normal mood, normal affect. SKIN: Warm, dry, normal turgor, no rashes or lesions noted. LABS HOSPITAL COURSE: Date of Admission:06/06/19 Date of Discharge: 06/09/19 Pre hospital course 39 year-old male with a PMH significant for HTN who presents to the ED for evaluation of abdominal pain for 2 days. Patient developed sudden onset abdominal pain yesterday, which was originally a 10/10 in nature but is now a 7/ 10.The pain is intermittent, felt diffusely across the lower abdomen, radiates to the back, and is unaffected by eating. He states today he developed a subjective fever, but was within normal limits when measured. Patient denies any history of similar symptoms or abdominal surgeries. Denies nausea, vomiting , diarrhea, constipation, dysuria. ER course (1) WBC 14k, afebrile (2) CT: diverticulitis, air in mesentery (3) IV fluids; Zosyn x 1 Subsequent hospital course 39 year-old male with a PMH significant for HTN, admitted for diverticulitis. Acute Diverticulitis --06/06 CTAP: acute diverticulitis of the proximal sigmoid colon, no abscess formation, (+) free air in mesentery --leukocytosis resolved; no fever --treated with Zosyn, discharged on augmentin --was initially kept NPO with IV fluids; diet was slowly advanced; +BM + flatus, pain resolved Hypertension --BP remained stable --continued amlodipine, ACEI Minutes to complete discharge: 35 Discharge Summary Problems reviewed: Yes Reason For Visit: DIVERTICULITIS Current Active Problems Chills without fever (Acute) Class 2 obesity due to excess calories with body mass index (BMI) of 36.0 to 36.9 in adult (Acute) Diverticulitis (Acute) Diverticulitis of large intestine with perforation without abscess or bleeding ( Acute) LLQ pain (Acute) Condition: Improved - Instructions Diet, Activity, Other Instructions: A prescription has been sent to your pharmacy for Augmentin which is an antibiotic. Take this medication as directed and be sure to FINISH ALL THE MEDICATION EVEN IF YOU ARE FEELING BETTER. You need to have a colonoscopy in 4-6 weeks so it is important you make an appointment with a automotive sales associate. You may want to see Dr. Mark Wise. His contact information is enclosed. Return to the emergency department for any new or worsening symptoms. Referrals: Mark Wise MD [Staff Physician] - 1 Month (Call Dr. Wise' office to make an appointment for a colonoscopy.) Disposition: HOME - Home Medications Comprehensive Discharge Medication List: Ambulatory Orders Amlodipine Besylate 5 mg PO DAILY 06/07/19 Telmisartan [Micardis] 80 mg PO DAILY 06/07/19 This patient is new to me today: No Emergency Visit: Yes ED Registration Date: 06/06/19 Care time: The patient presented to the Emergency Department on the above date and was hospitalized for further evaluation of their emergent condition. Critical Care patient: No - Discharge Referral Referred to [facility] No
[2019-06-09 14:31] VITALS: BP 110/70; PULSE 79; TEMP 98.1
--- NOTE | 2019-06-09 14:46 | PN ---
Progress Note, Physician History of Present Illness: stable improving pain much better - Current Medication List Current Medications: Active Medications Acetaminophen (Tylenol -) 650 mg PO Q6H PRN PRN Reason: PAIN LEVEL 6-10 Amlodipine Besylate (Norvasc -) 5 mg PO DAILY [facility] Last Admin: 06/09/19 10:00 Dose: 5 mg Piperacillin Sod/Tazobactam (Sod 4.5 gm/ Dextrose) 100 mls @ 200 mls/hr IVPB Q8H-IV [facility]; Protocol Last Admin: 06/09/19 10:00 Dose: 200 mls/hr Sodium Chloride (1/2 Normal Saline) 1,000 mls @ 75 mls/hr IV ASDIR [facility] Last Admin: 06/08/19 15:02 Dose: 75 mls/hr Lactobacillus Acidophilus (Bacid -) 1 tab PO DAILY [facility] Last Admin: 06/09/19 09:59 Dose: 1 tab Valsartan (Diovan -) 320 mg PO DAILY [facility] Last Admin: 06/09/19 10:00 Dose: 320 mg - Objective Vital Signs: Vital Signs Temperature 98.1 F 06/09/19 14:00 Pulse Rate 79 06/09/19 14:00 Respiratory Rate 16 06/09/19 14:00 Blood Pressure 110/70 06/09/19 14:00 O2 Sat by Pulse Oximetry (%) 97 06/09/19 14:00 Constitutional: Yes: No Distress, Calm Cardiovascular: Yes: S1, S2 Respiratory: Yes: Regular, CTA Bilaterally Gastrointestinal: Yes: Soft, Hypoactive Bowel Sounds, Tenderness (improving) Musculoskeletal: Yes: WNL Extremities: Yes: WNL Neurological: Yes: Alert, Oriented Psychiatric: Yes: Alert, Oriented Labs: CBC, BMP 06/08/19 07:10 06/08/19 07:10 INR, PTT INR 1.05 (0.83-1.09) 06/07/19 01:03 Assessment/Plan Problem List - Problems (1) Diverticulitis of large intestine with perforation without abscess or bleeding Code(s): K57.20 - DVTRCLI OF LG INT W PERFORATION AND ABSCESS W/O BLEEDING (2) LLQ pain Code(s): R10.32 - LEFT LOWER QUADRANT PAIN (3) Chills without fever Code(s): R68.83 - CHILLS (WITHOUT FEVER) (4) Class 2 obesity due to excess calories with body mass index (BMI) of 36.0 to 36.9 in adult Code(s): E66.09 - OTHER OBESITY DUE TO EXCESS CALORIES; Z68.36 - BODY MASS INDEX (BMI) 36.0-36.9, ADULT Qualifiers: Serious obesity comorbidity presence: without serious comorbidity Qualified Code(s): E66.09 - Other obesity due to excess calories; Z68.36 - Body mass index (BMI) 36.0-36.9, adult plan continue abx await for surgery plan of advancing diet close watch rest as per the team
--- NOTE | 2019-06-09 14:46 | PN ---
Progress Note, Physician History of Present Illness: stable much better - Current Medication List Current Medications: Active Medications Acetaminophen (Tylenol -) 650 mg PO Q6H PRN PRN Reason: PAIN LEVEL 6-10 Amlodipine Besylate (Norvasc -) 5 mg PO DAILY [facility] Last Admin: 06/09/19 10:00 Dose: 5 mg Piperacillin Sod/Tazobactam (Sod 4.5 gm/ Dextrose) 100 mls @ 200 mls/hr IVPB Q8H-IV [facility]; Protocol Last Admin: 06/09/19 10:00 Dose: 200 mls/hr Sodium Chloride (1/2 Normal Saline) 1,000 mls @ 75 mls/hr IV ASDIR [facility] Last Admin: 06/08/19 15:02 Dose: 75 mls/hr Lactobacillus Acidophilus (Bacid -) 1 tab PO DAILY [facility] Last Admin: 06/09/19 09:59 Dose: 1 tab Valsartan (Diovan -) 320 mg PO DAILY [facility] Last Admin: 06/09/19 10:00 Dose: 320 mg - Objective Vital Signs: Vital Signs Temperature 98.1 F 06/09/19 14:00 Pulse Rate 79 06/09/19 14:00 Respiratory Rate 16 06/09/19 14:00 Blood Pressure 110/70 06/09/19 14:00 O2 Sat by Pulse Oximetry (%) 97 06/09/19 14:00 Constitutional: Yes: No Distress, Calm Cardiovascular: Yes: S1, S2 Respiratory: Yes: Regular, CTA Bilaterally Gastrointestinal: Yes: Normal Bowel Sounds, Soft Musculoskeletal: Yes: WNL Extremities: Yes: WNL Labs: CBC, BMP 06/08/19 07:10 06/08/19 07:10 INR, PTT INR 1.05 (0.83-1.09) 06/07/19 01:03 Assessment/Plan Problem List - Problems (1) Diverticulitis of large intestine with perforation without abscess or bleeding Code(s): K57.20 - DVTRCLI OF LG INT W PERFORATION AND ABSCESS W/O BLEEDING (2) LLQ pain Code(s): R10.32 - LEFT LOWER QUADRANT PAIN (3) Chills without fever Code(s): R68.83 - CHILLS (WITHOUT FEVER) (4) Class 2 obesity due to excess calories with body mass index (BMI) of 36.0 to 36.9 in adult Code(s): E66.09 - OTHER OBESITY DUE TO EXCESS CALORIES; Z68.36 - BODY MASS INDEX (BMI) 36.0-36.9, ADULT Qualifiers: Serious obesity comorbidity presence: without serious comorbidity Qualified Code(s): E66.09 - Other obesity due to excess calories; Z68.36 - Body mass index (BMI) 36.0-36.9, adult plan tolerated can change to oral abx augmentin for another 10 days follow up with surgery and gi
== END 2019-06-09 15:33 | disposition home or self-care (01) | DRG 244 ==
LOC: SUPCPDRO 18:50 → FER 18:50 → FM/S 22:54 → UNDOADMIN 06-07 01:13 → FM/S 06-07 01:13
PROVIDERS: ADMIT Internal Medicine; ATTEND Nurse Practitioner Acute Care
DX: K57.80 Diverticulitis of intestine, part unspecified, with perforation and abscess without bleeding (principal); I10 Essential (primary) hypertension; Z68.36 Body mass index [BMI] 36.0-36.9, adult; R68.83 Chills (without fever); E66.09 Other obesity due to excess calories; R10.32 Left lower quadrant pain; K66.8 Other specified disorders of peritoneum
CPT/HCPCS: 36415; 74177-TC; 80048; 80053; 81003; 81015; 83690; 83735; 85025; 85610; 85730; 86850; 86900; 86901; 87040; 93005; 97116-GP; 97161-GP; 99283-25; J7030

== ENCOUNTER 2020-11-12 12:56 | Emergency (ER) | payer OTHER ==
[2020-11-12 13:06] VITALS: BMI 36.0
[2020-11-12 14:26] LABS: HEMATOCRIT 46.2 % (35.4-49); HEMOGLOBIN 16.1 GM/dL (11.7-16.9); MCH 29.3 pg (25.7-33.7); MCHC 34.8 g/dl (32.0-35.9); MEAN CELL VOLUME 84.3 fl (80-96); MEAN PLT VOLUME 10.8 fl (7.5-11.1); PLATELET COUNT 223 K/MM3 (134-434); RBC 5.48 M/mm3 (4.00-5.60); RDW 13.9 % (11.9-15.9); WHITE BLOOD COUNT 10.3 K/mm3 (4.0-10.0)
[2020-11-12 14:51] LABS: CHLORIDE 104 mmol/L (98-107); SODIUM 138 mmol/L (136-145)
[2020-11-12 14:53] LABS: CALCIUM 9.4 mg/dL (8.5-10.1)
[2020-11-12 14:54] LABS: ANION GAP 5 MMOL/L (8-16); BLOOD UREA NITROGEN 12.2 mg/dL (7-18); CO2 28 mmol/L (21-32); GLUCOSE,RANDOM 150 mg/dL (74-106)
[2020-11-12 14:57] LABS: CREATININE 1.1 mg/dL (0.55-1.3); SGPT/ALT 85 U/L (13-61)
[2020-11-12 14:58] LABS: BILIRUBIN,TOTAL 0.8 mg/dL (0.2-1); SGOT/AST 37 U/L (15-37); TOT PROT 7.8 g/dl (6.4-8.2)
[2020-11-12 14:59] LABS: ALK PHOS 104 U/L (45-117)
[2020-11-12 17:37] VITALS: BP 139/89; PULSE 89; TEMP 98.9
== END 2020-11-12 17:36 | disposition home or self-care (01) ==
LOC: JER 12:56
DX: R07.9 Chest pain, unspecified (principal); I10 Essential (primary) hypertension; E66.9 Obesity, unspecified
CPT/HCPCS: 36415; 71046-TC-FY; 80053; 82550; 82553; 83880; 84484; 85027; 85379; 93005; 93010; 99285-25

== ENCOUNTER 2023-01-10 12:28 | Emergency (ER) | payer OTHER ==
[2023-01-10 12:47] VITALS: BP 157/97; PULSE 88; RESP 16; TEMP 98.8; BMI 37.4
[2023-01-10] MEDS ORDERED: KETOROLAC TROMETHAMINE 60 MG/2 ML VIAL IM ONE (13:06)
[2023-01-10] MEDS ORDERED: KETOROLAC TROMETHAMINE 60 MG/2 ML VIAL ONE (13:09)
== END 2023-01-10 13:40 | disposition home or self-care (01) ==
LOC: FER 12:28
PROC: 3E0233Z Introduction of Anti-inflammatory into Muscle, Percutaneous Approach (ICD-10-PCS; principal; 2023-01-10)
DX: M54.50 Low back pain, unspecified (principal)
CPT/HCPCS: 99284-25

== ENCOUNTER 2023-08-25 20:12 | Emergency (ER) | payer OTHER ==
[2023-08-25 20:27] VITALS: BP 163/120; PULSE 83; RESP 18; TEMP 98.9; BMI 37.4
[2023-08-25] MEDS ORDERED: KETOROLAC TROMETHAMINE 60 MG/2 ML VIAL IM ONE (22:10)
[2023-08-25] MEDS ORDERED: KETOROLAC TROMETHAMINE 60 MG/2 ML VIAL ONE (22:14)
== END 2023-08-25 22:46 | disposition home or self-care (01) ==
LOC: FER 20:12
PROC: 3E0233Z Introduction of Anti-inflammatory into Muscle, Percutaneous Approach (ICD-10-PCS; principal; 2023-08-25)
DX: M54.50 Low back pain, unspecified (principal)
CPT/HCPCS: 81003; 99284-25